=== PATIENT | female | born 1965 | race Caucasian/White ===

== ENCOUNTER 2017-03-20 15:05 | Emergency (ER) | payer OTHER ==
[~2017-03-20] VITALS: Ht 170.2 cm; Wt 106.4 kg
[2017-03-20] MEDS ORDERED: ATARAX,VISTARIL25 MG PO (15:34)
[2017-03-20] MEDS ORDERED: ZOLOFT100 MG PO (15:34)
[2017-03-20] MEDS ORDERED: KEFLEX500 MG PO (16:42)
[2017-03-20 16:52] VITALS: BP 138/88
== END 2017-03-20 16:53 | disposition home or self-care (01) ==
LOC: EME 15:05
DX: L03.115 Cellulitis of right lower limb (principal); Z88.0 Allergy status to penicillin
CPT/HCPCS: 93971; 99281; 99283